=== PATIENT | female | born 2000 | race Caucasian/White ===

== ENCOUNTER 2020-08-31 21:28 | Inpatient (IN) | payer MEDICAID ==
[~2020-08-31] VITALS: Ht 165.1 cm; Wt 69.4 kg
[2020-08-31] MEDS ORDERED: BUSP15 PO (23:15)
[2020-08-31] MEDS ORDERED: CITA-144 PO (23:15)
[2020-08-31] MEDS ORDERED: LAMO100 PO (23:15)
[2020-08-31] MEDS ORDERED: HALOPERIDOL 5 MG TABLET PO PRN (23:30)
[2020-09-01 00:31] VITALS: BP 124/69
[2020-09-01] MEDS: ZOLPIDEM TARTRATE 10 MG TABLET PO PRN ×2 (00:58→20:01)
[2020-09-01] MEDS ORDERED: INFLUENZA VIRUS VACCINE QVS 2020-21 (6MO+)/PF 60 MCG/0.5 ML SYRINGE IM ONE (01:00)
[2020-09-01] MEDS ORDERED: ACETAMINOPHEN 325 MG TABLET PO PRN (07:30)
[2020-09-01] MEDS ORDERED: ALBUTEROL SULFATE HFA 90 MCG/PUFF 8 GM INHALER IH PRN (07:30)
[2020-09-01] MEDS ORDERED: IBUPROFEN 400 MG TABLET PO PRN (07:30)
[2020-09-01] MEDS ORDERED: GuaiFENesin/D-METHORPHAN [SUGAR-FREE] 200-20MG/10 ML SYRUP UDCUP PO PRN (07:30)
[2020-09-01] MEDS ORDERED: CloNIDine HCL 0.1 MG TABLET PO PRN (07:30)
[2020-09-01] MEDS ORDERED: LOPERAMIDE HCL 2 MG CAPSULE PO PRN (07:30)
[2020-09-01] MEDS ORDERED: MAG HYDROX/AL HYDROX/SIMETH ES 30 ML SUSPENSION UDCUP PO PRN (07:30)
[2020-09-01] MEDS ORDERED: DOCUSATE SODIUM 100 MG CAPSULE PO PRN (07:30)
[2020-09-01] MEDS ORDERED: PETROLATUM,WHITE 28 GM JELLY TP PRN (07:30)
[2020-09-01] MEDS ORDERED: MAGNESIUM HYDROXIDE SUSPENSION 30 ML UDCUP PO PRN (07:30)
[2020-09-01] MEDS ORDERED: ONDANSETRON HCL 4 MG TABLET PO PRN (07:30)
[2020-09-01] MEDS ORDERED: NICOTINE 14 MG/24 HOUR PATCH TD PRN (07:30)
[2020-09-01 08:13] LABS: BASOPHILS % (AUTO) 0.6 % (0.0-2.0); EOSINOPHILS % (AUTO) 1.8 % (1.0-6.0); HEMATOCRIT 38.9 % (36-46); HEMOGLOBIN 12.8 g/dL (12.0-16.0); LYMPHOCYTES # (AUTO) 2.1 K/uL (1.0-4.8); LYMPHOCYTES % (AUTO) 37.7 % (22.0-44.0); MEAN CORPUSCULAR HEMOGLOBIN 28.6 pg (26.0-34.0); MEAN CORPUSCULAR HGB CONC 32.9 G/dL (31.0-37.0); MEAN CORPUSCULAR VOLUME 87 fL (80-100); MONOCYTES # (AUTO) 0.5 K/uL (0.1-1.0); MONOCYTES % (AUTO) 8.8 % (2.0-9.0); NEUTROPHILS # (AUTO) 2.9 K/uL (1.8-7.7); NEUTROPHILS % (AUTO) 51.1 % (40.0-70.0); PLATELET COUNT (AUTO) 196 K/uL (150-450); RED BLOOD CELL COUNT(AUTO) 4.48 MIL/uL (4.00-5.20); RED CELL DISTRIBUTION WIDTH 12.9 % (11.5-14.5)
[2020-09-01 08:16] VITALS: BP 100/54
[2020-09-01 08:25] LABS: HEMOGLOBIN A1C 4.9 % (3.8-5.6)
[2020-09-01 08:37] LABS: ALANINE AMINOTRANSFERASE 14 U/L (12-78); ALBUMIN 3.6 g/dL (3.4-5.0); ALKALINE PHOSPHATASE 54 U/L (46-116); ANION GAP 6 mmol/L (8-16); ASPARTATE AMINOTRANSFERASE 14 U/L (15-37); BILIRUBIN,TOTAL 0.6 mg/dL (0.1-1.0); CALCIUM, TOTAL 8.7 mg/dL (8.8-10.5); CARBON DIOXIDE 30 mmol/L (22-29); CHLORIDE 105 mmol/L (98-107); CHOL/HDL RATIO 3.3 (3.9-5.7); CHOLESTEROL 136 mg/dL (131-200); CREATININE 0.78 mg/dL (0.60-1.30); FREE T4 (FREE THYROXINE) 0.89 ng/dL (0.76-1.46); GLOMERULAR FILTR. RATE CALC > 60 mL/min (>60); GLUCOSE,RANDOM 82 mg/dL (70-110); HCG,QUANTITATIVE < 1 mIU/mL (0-6); HDL CHOLESTEROL 41 mg/dL (40-60); LDL CHOL (CALC.) 83 mg/dL (0-130); POTASSIUM 4.2 mmol/L (3.5-5.1); SODIUM SERUM 141 mmol/L (136-145); THYROID STIMULATING HORMONE 2.43 uIU/mL (0.36-3.74); TOTAL PROTEIN, SERUM 6.3 g/dL (6.4-8.2); TRIGLYCERIDES 62 mg/dL (15-150); UREA NITROGEN, BLOOD 8 mg/dL (7-18)
[2020-09-01] MEDS: LamoTRIgine 100 MG TABLET PO SCH (10:31)
[2020-09-01] MEDS: CITALOPRAM HYDROBROMIDE 20 MG TABLET PO SCH (10:32)
[2020-09-01] MEDS: BusPIRone HCL 15 MG TABLET PO SCH ×2 (13:33→16:50)
[2020-09-01 16:02] VITALS: BP 106/66
[2020-09-02] MEDS: LORazepam 2 MG TABLET PO PRN (00:57)
[2020-09-02 01:18] VITALS: BP 100/63
[2020-09-02 07:59] LABS: APPEARANCE,URINE TURBID (CLEAR); BILIRUBIN,URINE NEGATIVE (NEGATIVE); GLUCOSE, URINE (UA) NEGATIVE (NEGATIVE); KETONES,URINE NEGATIVE (NEGATIVE); LEUKOCYTE ESTERASE ,URINE SMALL (NEGATIVE); NITRATE,URINE NEGATIVE (NEGATIVE); OCCULT BLOOD,URINE MODERATE (NEGATIVE); PH,URINE 7.5 (5.0-8.0); PROTEIN,URINE TRACE (NEGATIVE); UROBILINOGEN,URINE 0.2 mg/dL (<=1.0)
[2020-09-02 08:02] LABS: AMPHET/METH SCREEN,URINE NEGATIVE (NEGATIVE); BARBITURATE SCREEN, URINE NEGATIVE (NEGATIVE); BENZODIAZEPINES SCREEN,URINE NEGATIVE (NEGATIVE); CANNABINOID SCREEN,URINE POSITIVE (NEGATIVE); COCAINE SCREEN,URINE NEGATIVE (NEGATIVE); METHADONE SCREEN, URINE NEGATIVE (NEGATIVE); OPIATE SCREEN,URINE NEGATIVE (NEGATIVE); PHENCYCLIDINE SCREEN,URINE NEGATIVE (NEGATIVE)
[2020-09-02 08:04] VITALS: BP 116/66
[2020-09-02 08:06] LABS: AMORPHOUS SEDIMENT,UR Many /LPF (None Seen); BACTERIA,URINE Few /HPF (None Seen); SQUAMOUS EPITHELIAL CELL,UR Moderate /LPF (None Seen)
[2020-09-02] MEDS: LamoTRIgine 100 MG TABLET PO SCH (08:46)
[2020-09-02] MEDS: BusPIRone HCL 15 MG TABLET PO SCH ×3 (08:46→16:23)
[2020-09-02] MEDS: CITALOPRAM HYDROBROMIDE 20 MG TABLET PO SCH (08:46)
[2020-09-02 16:09] VITALS: BP 129/73
[2020-09-02] MEDS: CIPROFLOXACIN HCL 500 MG TABLET PO SCH (16:32)
[2020-09-02] MEDS: ZOLPIDEM TARTRATE 10 MG TABLET PO PRN (20:21)
[2020-09-03 01:50] VITALS: BP 125/76
[2020-09-03 08:13] VITALS: BP 109/66
[2020-09-03] MEDS: LamoTRIgine 100 MG TABLET PO SCH (08:22)
[2020-09-03] MEDS: CITALOPRAM HYDROBROMIDE 20 MG TABLET PO SCH (08:22)
[2020-09-03] MEDS: BusPIRone HCL 15 MG TABLET PO SCH ×3 (08:22→16:50)
[2020-09-03] MEDS: CIPROFLOXACIN HCL 500 MG TABLET PO SCH ×2 (08:22→16:50)
[2020-09-03 16:16] VITALS: BP 114/72
[2020-09-03] MEDS: ZOLPIDEM TARTRATE 10 MG TABLET PO PRN (21:02)
[2020-09-04 01:17] VITALS: BP 110/78
[2020-09-04] MEDS: LORazepam 2 MG TABLET PO PRN (03:06)
[2020-09-04] MEDS: CITALOPRAM HYDROBROMIDE 20 MG TABLET PO SCH (08:16)
[2020-09-04] MEDS: LamoTRIgine 100 MG TABLET PO SCH (08:16)
[2020-09-04] MEDS: BusPIRone HCL 15 MG TABLET PO SCH (08:16)
[2020-09-04] MEDS: CIPROFLOXACIN HCL 500 MG TABLET PO SCH (08:16)
[2020-09-04 08:17] VITALS: BP 110/66
[2020-09-04] MEDS ORDERED: LAMO100 PO (09:20)
[2020-09-04] MEDS ORDERED: CITA-144 PO (09:20)
[2020-09-04] MEDS ORDERED: BUSP15 PO (09:20)
[2020-09-04] MEDS ORDERED: CIPR-278 PO (11:14)
== END 2020-09-04 11:30 | disposition home or self-care (01) | DRG 751 ==
LOC: B3A 23:28
DX: F33.2 Major depressive disorder, recurrent severe without psychotic features (principal); R45.851 Suicidal ideations; F12.10 Cannabis abuse, uncomplicated; Z91.5 Personal history of self-harm; Z88.8 Allergy status to other drugs, medicaments and biological substances; I95.9 Hypotension, unspecified; F19.10 Other psychoactive substance abuse, uncomplicated; N39.0 Urinary tract infection, site not specified; Z72.89 Other problems related to lifestyle; Z79.899 Other long term (current) drug therapy; Z91.013 Allergy to seafood
CPT/HCPCS: 80307; 83036; 84439; 84443